=== PATIENT | male | born 1950 | race Caucasian/White ===

== ENCOUNTER → 2016-12-15 | Outpatient (CLI) | payer MEDICARE, OTHER ==
[~2016-12-15] MED LIST: ATEN-60 PO; HYDR25TA4 PO
== END | disposition home or self-care (01) ==
LOC: LAB 11:00
PROVIDERS: ATTEND Physician Assistant
DX: L57.9 Skin changes due to chronic exposure to nonionizing radiation, unspecified (principal)

== ENCOUNTER → 2017-04-17 | Outpatient (CLI) | payer MEDICARE, OTHER ==
[2017-04-17 13:23] LABS: Basophils # (auto) 0 uL; Basophils % (auto) 0.3 % (0.0-2.0); CONDITION Y; Eosinophils # (auto) 0.1 uL; Eosinophils % (auto) 0.9 % (0.0-7.0); Hematocrit 50.4 % (41.0-53.0); Hemoglobin 16.6 g/dL (13.5-17.5); Lymphocytes # (auto) 1.9 uL; Mean Corpuscular Hemoglobin 29.6 pg (28.0-32.0); Mean Corpuscular Hgb Conc. 32.9 g/dL (32.0-36.0); Mean Corpuscular Volume 89.9 fL (80.0-100.0); Mean Platelet Volume 8.4 fL (7.4-10.4); Monocytes # (auto) 0.9 uL; Monocytes % (auto) 9.4 % (0.0-12.0); Neutrophils # (auto) 7.1 uL; Neutrophils % (auto) 70.4 % (37.0-80.0); Platelet Count (auto) 252 10^3/uL (140-450); Red Cell Distribution Width 14.8 % (11.6-16.0); White Blood Cell 10.1 10^3/uL (4.4-10.8)
[2017-04-17 13:51] LABS: Albumin 3.7 g/dL (3.4-5.0); BUN/Creatinine Ratio 13.8; Bilirubin, Total 0.6 mg/dL (0.2-1.0); Calcium 9.4 mg/dL (8.5-10.1); Potassium 3.8 mmol/L (3.5-5.1); Total Protein 7.6 g/dL (6.4-8.2)
[2017-04-17 14:16] LABS: Urine Bilirubin Negative (Negative); Urine Blood Negative /uL (Negative); Urine Color Yellow (Yellow); Urine Glucose Normal (Normal); Urine Hyaline Cast FEW /lpf (0 - 2); Urine Ketone Negative (Negative); Urine Mucus FEW (None Seen); Urine Nitrite Negative (Negative); Urine RBC <1 /hpf (0 - 3); Urine pH 5.5 (5.0-8.0)
== END | disposition home or self-care (01) ==
LOC: LAB 13:06
PROVIDERS: ATTEND Family Medicine
DX: I10 Essential (primary) hypertension (principal); R73.09 Other abnormal glucose; R97.20 Elevated prostate specific antigen [PSA]
CPT/HCPCS: 36415; 80053; 80061; 81001; 82607; 83036; 84153; 84443; 85025

== ENCOUNTER → 2017-06-15 | Day surgery (SDC) | payer MEDICARE, OTHER ==
[2017-06-11 10:52] LABS: Basophils # (auto) 0 uL; Basophils % (auto) 0.4 % (0.0-2.0); Eosinophils # (auto) 0.2 uL; Eosinophils % (auto) 2.2 % (0.0-7.0); Hematocrit 48.8 % (41.0-53.0); Hemoglobin 16.3 g/dL (13.5-17.5); Lymphocytes # (auto) 1.6 uL; Mean Corpuscular Hemoglobin 30.5 pg (28.0-32.0); Mean Corpuscular Hgb Conc. 33.4 g/dL (32.0-36.0); Mean Corpuscular Volume 91.6 fL (80.0-100.0); Mean Platelet Volume 8.7 fL (6.9-10.8); Monocytes # (auto) 0.7 uL; Monocytes % (auto) 9.4 % (0.0-12.0); Platelet Count (auto) 205 10^3/uL (140-450); Red Cell Distribution Width 15.2 % (11.8-14.3); White Blood Cell 7.4 10^3/uL (4.4-10.8)
[2017-06-11 11:04] LABS: INR 0.93 (0.9-1.15); Partial Thromboplastin Time 26.9 sec (22.64-33.71); Prothrombin Time 10.1 sec (9.37-12.3)
[~2017-06-15] VITALS: Ht 170.2 cm; Wt 93.0 kg
[~2017-06-15] MED LIST changes: +FLUMAZENIL 0.1 MG/ML INJ 10ML MDV IV ONE; +MIDAZOLAM HCL 5 MG/ML-1ML VIAL ONE; +NALOXONE HCL 0.4 MG/ML VIAL ONE; +SODIUM CHLORIDE LOCK 10 ML ONE; +diphenhdrAMINE HCL 50 MG/1 ML VL ONE; +fentaNYL CITRATE 100 MCG/2 ML VL ONE
[2017-06-15 09:50] VITALS: BP 126/84
== END | disposition home or self-care (01) ==
LOC: GI 07:55
PROVIDERS: ATTEND Internal Medicine Gastroenterology
DX: Z12.11 Encounter for screening for malignant neoplasm of colon (principal); K57.30 Diverticulosis of large intestine without perforation or abscess without bleeding; K63.5 Polyp of colon; E66.9 Obesity, unspecified; F17.210 Nicotine dependence, cigarettes, uncomplicated; D69.6 Thrombocytopenia, unspecified
CPT/HCPCS: 36415; 45380; 85025; 85610; 85730; 88305; J1200; J2250; J3010; J7030; 99152

== ENCOUNTER → 2017-10-29 | Outpatient (CLI) | payer MEDICARE, OTHER ==
[~2017-10-29] MED LIST changes: -FLUMAZENIL 0.1 MG/ML INJ 10ML MDV IV ONE; -MIDAZOLAM HCL 5 MG/ML-1ML VIAL ONE; -NALOXONE HCL 0.4 MG/ML VIAL ONE; -SODIUM CHLORIDE LOCK 10 ML ONE; -diphenhdrAMINE HCL 50 MG/1 ML VL ONE; -fentaNYL CITRATE 100 MCG/2 ML VL ONE
[2017-10-29 13:45] LABS: Albumin 3.6 g/dL (3.4-5.0); BUN/Creatinine Ratio 15.5; Bilirubin, Total 0.3 mg/dL (0.2-1.0); Calcium 9.4 mg/dL (8.5-10.1); Potassium 4.3 mmol/L (3.5-5.1); Total Protein 7.6 g/dL (6.4-8.2)
== END | disposition home or self-care (01) ==
LOC: LAB 12:11
PROVIDERS: ATTEND Family Medicine
DX: I10 Essential (primary) hypertension (principal); E11.9 Type 2 diabetes mellitus without complications
CPT/HCPCS: 36415; 80053; 80061; 82043; 83036

== ENCOUNTER → 2019-02-07 | Outpatient (CLI) | payer MEDICARE, OTHER ==
[2019-02-07 10:51] LABS: Urine Bacteria NONE SEEN /hpf (None Seen); Urine Blood Negative /uL (Negative); Urine Hyaline Cast FEW /lpf (0 - 2); Urine Specific Gravity 1.021 (1.001-1.035); Urine WBC 1 /hpf (0 - 3)
[2019-02-07 11:09] LABS: Potassium 4.5 mmol/L (3.5-5.1)
[2019-02-07 11:10] LABS: Basophils # (auto) 0 uL; Basophils % (auto) 0.3 % (0.0-2.0); Eosinophils # (auto) 0.1 uL; Eosinophils % (auto) 1.2 % (0.0-7.0); Hematocrit 49.1 % (41.0-53.0); Hemoglobin 16.1 g/dL (13.5-17.5); Lymphocytes # (auto) 1.7 uL; Lymphocytes % (auto) 21.6 % (10.0-50.0); Mean Corpuscular Hemoglobin 29.2 pg (28.0-32.0); Mean Corpuscular Hgb Conc. 32.7 g/dL (32.0-36.0); Mean Corpuscular Volume 89.1 fL (80.0-100.0); Monocytes # (auto) 0.7 uL; Monocytes % (auto) 9.5 % (0.0-12.0); Neutrophils # (auto) 5.2 uL; Neutrophils % (auto) 67.4 % (37.0-80.0); Nucleated Red Blood Cells % 0.1 %; Platelet Count (auto) 201 10^3/uL (140-450); Red Blood Cells 5.51 10^6/uL (4.5-5.90); White Blood Cell 7.7 10^3/uL (4.4-10.8)
[2019-02-07 11:19] LABS: Albumin 3.7 g/dL (3.4-5.0); BUN/Creatinine Ratio 21.8; Bilirubin, Total 0.3 mg/dL (0.2-1.0); Calcium 9.6 mg/dL (8.5-10.1); Total Protein 7.6 g/dL (6.4-8.2)
[2019-02-07 11:32] LABS: Prostate Specific Antigen 0.19 ng/mL (0.0-4.0)
== END | disposition home or self-care (01) ==
LOC: LAB 09:56
PROVIDERS: ATTEND Family Medicine
DX: Z12.5 Encounter for screening for malignant neoplasm of prostate (principal); I10 Essential (primary) hypertension; E11.9 Type 2 diabetes mellitus without complications; E66.01 Morbid (severe) obesity due to excess calories; Z72.0 Tobacco use
CPT/HCPCS: 36415; 80053; 80061; 81001; 82043; 82607; 83036; 84153; 84443; 85025

== ENCOUNTER → 2020-03-07 | Outpatient (CLI) | payer MEDICARE, OTHER ==
[2020-03-07 11:43] LABS: Urine Bacteria NONE SEEN /hpf (None Seen); Urine Blood Negative /uL (Negative); Urine Specific Gravity 1.031 (1.001-1.035); Urine WBC <1 /hpf (0 - 3)
[2020-03-07 11:45] LABS: Basophils # (auto) 0 10 ^3/uL (0-0.2); Basophils % (auto) 0.3 % (0.0-2.0); Eosinophils # (auto) 0 10 ^3/uL (0-0.8); Eosinophils % (auto) 0.5 % (0.0-7.0); Hematocrit 49.7 % (41.0-53.0); Hemoglobin 16.1 g/dL (13.5-17.5); Lymphocytes # (auto) 1.4 10 ^3/uL (0.4-5.4); Lymphocytes % (auto) 17.3 % (10.0-50.0); Mean Corpuscular Hemoglobin 29.2 pg (28.0-32.0); Mean Corpuscular Hgb Conc. 32.4 g/dL (32.0-36.0); Mean Corpuscular Volume 90.1 fL (80.0-100.0); Monocytes # (auto) 0.7 10 ^3/uL (0-1.3); Monocytes % (auto) 9.3 % (0.0-12.0); Neutrophils # (auto) 5.7 10 ^3/uL (1.6-8.6); Neutrophils % (auto) 72.6 % (37.0-80.0); Platelet Count (auto) 197 10^3/uL (140-450); Red Blood Cells 5.51 10^6/uL (4.5-5.90); Red Cell Distribution Width 14.1 % (11.8-14.3); White Blood Cell 7.9 10^3/uL (4.4-10.8)
[2020-03-07 12:11] LABS: Albumin 3.4 g/dL (3.4-5.0); Potassium 4.1 mmol/L (3.5-5.1)
[2020-03-07 12:16] LABS: BUN/Creatinine Ratio 18.9; Bilirubin, Total 0.5 mg/dL (0.2-1.0); Total Protein 7.4 g/dL (6.4-8.2)
== END | disposition home or self-care (01) ==
LOC: LAB 11:21
PROVIDERS: ATTEND Family Medicine
DX: I10 Essential (primary) hypertension (principal); E11.9 Type 2 diabetes mellitus without complications; E66.01 Morbid (severe) obesity due to excess calories; Z72.0 Tobacco use
CPT/HCPCS: 36415; 80053; 80061; 81001; 82043; 83036; 85025

== ENCOUNTER → 2020-08-29 | Outpatient (CLI) | payer MEDICARE, OTHER ==
[2020-08-29 10:06] LABS: Basophils # (auto) 0 10 ^3/uL (0-0.2); Basophils % (auto) 0.3 % (0.0-2.0); Eosinophils # (auto) 0.1 10 ^3/uL (0-0.8); Hematocrit 46.9 % (41.0-53.0); Hemoglobin 15.7 g/dL (13.5-17.5); Lymphocytes # (auto) 1.5 10 ^3/uL (0.4-5.4); Lymphocytes % (auto) 21.3 % (10.0-50.0); Mean Corpuscular Hemoglobin 29.6 pg (28.0-32.0); Mean Corpuscular Hgb Conc. 33.5 g/dL (32.0-36.0); Mean Corpuscular Volume 88.2 fL (80.0-100.0); Monocytes # (auto) 0.7 10 ^3/uL (0-1.3); Monocytes % (auto) 10.6 % (0.0-12.0); Neutrophils # (auto) 4.7 10 ^3/uL (1.6-8.6); Neutrophils % (auto) 66.8 % (37.0-80.0); Nucleated Red Blood Cells % 0.1 %; Platelet Count (auto) 209 10^3/uL (140-450); Red Blood Cells 5.31 10^6/uL (4.5-5.90); Red Cell Distribution Width 14.8 % (11.8-14.3); White Blood Cell 7.1 10^3/uL (4.4-10.8)
[2020-08-29 11:15] LABS: Potassium 4.2 mmol/L (3.5-5.1)
[2020-08-29 11:37] LABS: Albumin 3.6 g/dL (3.4-5.0); BUN/Creatinine Ratio 18.2; Bilirubin, Total 0.4 mg/dL (0.2-1.0); Calcium 9.3 mg/dL (8.5-10.1); Total Protein 7.9 g/dL (6.4-8.2)
== END | disposition home or self-care (01) ==
LOC: LAB 09:45
PROVIDERS: ATTEND Family Medicine
DX: I10 Essential (primary) hypertension (principal); E11.65 Type 2 diabetes mellitus with hyperglycemia; E66.09 Other obesity due to excess calories; E78.41 Elevated Lipoprotein(a)
CPT/HCPCS: 36415; 80053; 80061; 82607; 83036; 85025

== ENCOUNTER → 2021-09-24 | Outpatient (CLI) | payer MEDICARE, OTHER ==
[2021-09-24 11:06] LABS: Urine Bacteria NONE SEEN /hpf (None Seen); Urine Blood Negative /uL (Negative); Urine Specific Gravity 1.006 (1.001-1.035); Urine WBC <1 /hpf (0 - 3)
[2021-09-24 11:10] LABS: Basophils # (auto) 0 10 ^3/uL (0-0.2); Basophils % (auto) 0.5 % (0.0-2.0); Eosinophils # (auto) 0.1 10 ^3/uL (0-0.8); Eosinophils % (auto) 1.5 % (0.0-7.0); Hematocrit 46.6 % (41.0-53.0); Hemoglobin 15.3 g/dL (13.5-17.5); Lymphocytes # (auto) 1.5 10 ^3/uL (0.4-5.4); Lymphocytes % (auto) 18.6 % (10.0-50.0); Mean Corpuscular Hemoglobin 29.3 pg (28.0-32.0); Mean Corpuscular Hgb Conc. 32.8 g/dL (32.0-36.0); Mean Corpuscular Volume 89.4 fL (80.0-100.0); Monocytes # (auto) 0.7 10 ^3/uL (0-1.3); Neutrophils # (auto) 5.5 10 ^3/uL (1.6-8.6); Neutrophils % (auto) 70.4 % (37.0-80.0); Nucleated Red Blood Cells % 0.2 %; Red Blood Cells 5.21 10^6/uL (4.5-5.90); Red Cell Distribution Width 14.8 % (11.8-14.3); White Blood Cell 7.9 10^3/uL (4.4-10.8)
[2021-09-24 11:50] LABS: Potassium 4.3 mmol/L (3.5-5.1)
[2021-09-24 12:13] LABS: Albumin 3.6 g/dL (3.4-5.0); BUN/Creatinine Ratio 17.1; Bilirubin, Total 0.4 mg/dL (0.2-1.0); Calcium 9.6 mg/dL (8.5-10.1); Total Protein 7.7 g/dL (6.4-8.2)
== END | disposition home or self-care (01) ==
LOC: LAB 10:41
PROVIDERS: ATTEND Family Medicine
DX: E11.9 Type 2 diabetes mellitus without complications (principal); F17.200 Nicotine dependence, unspecified, uncomplicated; I10 Essential (primary) hypertension; E66.09 Other obesity due to excess calories
CPT/HCPCS: 36415; 80053; 80061; 81001; 82043; 82607; 83036; 85025

== ENCOUNTER → 2022-03-18 | Outpatient (CLI) | payer MEDICARE, OTHER | END | disposition home or self-care (01) | LOC: LAB 09:18 | PROVIDERS: ATTEND Urology | DX: Z01.812 Encounter for preprocedural laboratory examination (principal) | CPT/HCPCS: 36415; 82565; 84520 ==

== ENCOUNTER → 2022-04-23 | Outpatient (CLI) | payer MEDICARE, OTHER ==
[2022-04-23 11:52] LABS: Urine Bacteria NONE SEEN /hpf (None Seen); Urine Blood 3+ /uL (Negative); Urine Specific Gravity 1.016 (1.001-1.035); Urine WBC 1 /hpf (0 - 3)
== END | disposition home or self-care (01) ==
LOC: LAB 10:56
PROVIDERS: ATTEND Urology
DX: N13.30 Unspecified hydronephrosis (principal); N40.0 Benign prostatic hyperplasia without lower urinary tract symptoms; N39.0 Urinary tract infection, site not specified
CPT/HCPCS: 81001; 84153; 87086

== ENCOUNTER → 2022-09-25 | Outpatient (CLI) | payer MEDICARE, OTHER ==
[2022-09-25 10:33] LABS: Basophils # (auto) 0 10 ^3/uL (0-0.2); Basophils % (auto) 0.4 % (0.0-2.0); Eosinophils # (auto) 0.1 10 ^3/uL (0-0.8); Eosinophils % (auto) 1.6 % (0.0-7.0); Hematocrit 45.7 % (41.0-53.0); Hemoglobin 14.9 g/dL (13.5-17.5); Lymphocytes # (auto) 1.3 10 ^3/uL (0.4-5.4); Lymphocytes % (auto) 16.1 % (10.0-50.0); Mean Corpuscular Hgb Conc. 32.7 g/dL (32.0-36.0); Mean Corpuscular Volume 88.6 fL (80.0-100.0); Monocytes # (auto) 0.8 10 ^3/uL (0-1.3); Monocytes % (auto) 9.6 % (0.0-12.0); Neutrophils # (auto) 5.8 10 ^3/uL (1.6-8.6); Neutrophils % (auto) 72.3 % (37.0-80.0); Red Blood Cells 5.15 10^6/uL (4.5-5.90); Red Cell Distribution Width 15.7 % (11.8-14.3)
[2022-09-25 10:55] LABS: Potassium 4.5 mmol/L (3.5-5.1)
[2022-09-25 11:06] LABS: Albumin 3.6 g/dL (3.4-5.0); BUN/Creatinine Ratio 11.3; Bilirubin, Total 0.4 mg/dL (0.2-1.0); Calcium 9.2 mg/dL (8.5-10.1); Total Protein 7.6 g/dL (6.4-8.2)
== END | disposition home or self-care (01) ==
LOC: LAB 10:10
PROVIDERS: ATTEND Student in an Organized Health Care Education/Training Program
DX: E11.9 Type 2 diabetes mellitus without complications (principal); I10 Essential (primary) hypertension
CPT/HCPCS: 36415; 80053; 80061; 82043; 82274; 83036; 85025

== ENCOUNTER 2023-01-21 10:33 | Emergency (ER) | payer MEDICARE, OTHER ==
[~2023-01-21] VITALS: Ht 170.2 cm; Wt 90.3 kg
[2023-01-21 10:59] LABS: Basophils # (auto) 0 10 ^3/uL (0-0.2); Basophils % (auto) 0.3 % (0.0-2.0); Eosinophils # (auto) 0.1 10 ^3/uL (0-0.8); Eosinophils % (auto) 1.2 % (0.0-7.0); Hematocrit 46.3 % (41.0-53.0); Lymphocytes # (auto) 1.5 10 ^3/uL (0.4-5.4); Mean Corpuscular Hemoglobin 28.7 pg (28.0-32.0); Mean Corpuscular Hgb Conc. 32.3 g/dL (32.0-36.0); Mean Corpuscular Volume 88.8 fL (80.0-100.0); Monocytes # (auto) 0.7 10 ^3/uL (0-1.3); Monocytes % (auto) 9.1 % (0.0-12.0); Neutrophils # (auto) 5.7 10 ^3/uL (1.6-8.6); Neutrophils % (auto) 70.4 % (37.0-80.0); Nucleated Red Blood Cells % 0.1 %; Red Blood Cells 5.21 10^6/uL (4.5-5.90); Red Cell Distribution Width 15.2 % (11.8-14.3); White Blood Cell 8.1 10^3/uL (4.4-10.8)
[2023-01-21 11:25] LABS: Calcium 8.7 mg/dL (8.5-10.1); Potassium 4.4 mmol/L (3.5-5.1)
[2023-01-21 11:31] LABS: BUN/Creatinine Ratio 18.5 (10.0-20.0); Bilirubin, Total 0.3 mg/dL (0.2-1.0); Total Protein 7.2 g/dL (6.4-8.2)
[2023-01-21 11:56] VITALS: BP 154/70
[2023-01-21] MEDS ORDERED: LIDOCAINE 1% HCL (LOCAL ANESTH.) INJ 20ML MDV ID ONE (12:00)
[2023-01-21] MEDS ORDERED: CEPHALEXIN 250 MG CAP PO ONE (12:45)
[2023-01-21] MEDS ORDERED: CEPH-510 PO (12:45)
[2023-01-21] MEDS ORDERED: MUPI2OIN2 EX ×3 (12:45→13:42)
[2023-01-21] MEDS ORDERED: HYDROcodone-ACET 5/325MG TAB PO ONE (12:45)
== END 2023-01-21 13:43 | disposition home or self-care (01) ==
LOC: ER 10:33
DX: S61.012A Laceration without foreign body of left thumb without damage to nail, initial encounter (principal); E11.65 Type 2 diabetes mellitus with hyperglycemia; W26.8XXA Contact with other sharp object(s), not elsewhere classified, initial encounter; Y93.89 Activity, other specified; Y92.89 Other specified places as the place of occurrence of the external cause; Y99.8 Other external cause status
CPT/HCPCS: 12002; 36415; 80053; 82962; 84484; 85025; 99283; J2001

== ENCOUNTER → 2023-09-15 | Outpatient (CLI) | payer MEDICARE, OTHER ==
[~2023-09-15] MED LIST changes: +CEPH-510 PO; +MUPI2OIN2 EX
[2023-09-15 12:02] LABS: Basophils # (auto) 0.1 10 ^3/uL (0-0.2); Basophils % (auto) 0.8 % (0.0-2.0); Eosinophils # (auto) 0.1 10 ^3/uL (0-0.8); Eosinophils % (auto) 1.1 % (0.0-7.0); Hemoglobin 15.1 g/dL (13.5-17.5); Lymphocytes # (auto) 1.2 10 ^3/uL (0.4-5.4); Mean Corpuscular Hemoglobin 28.8 pg (28.0-32.0); Mean Corpuscular Hgb Conc. 32.1 g/dL (32.0-36.0); Mean Corpuscular Volume 89.6 fL (80.0-100.0); Monocytes # (auto) 0.7 10 ^3/uL (0-1.3); Monocytes % (auto) 8.1 % (0.0-12.0); Neutrophils # (auto) 6.2 10 ^3/uL (1.6-8.6); Nucleated Red Blood Cells % 0.1 %; Red Blood Cells 5.25 10^6/uL (4.5-5.90); White Blood Cell 8.2 10^3/uL (4.4-10.8)
[2023-09-15 12:45] LABS: Alanine Aminotransferase 24 U/L (7-40); Alkaline Phosphatase 69 U/L (46-116); Anion Gap 6 (5-15); BUN/Creatinine Ratio 10.6 (10.0-20.0); Blood Urea Nitrogen 12 mg/dL (9-23); Calcium 9.9 mg/dL (8.5-10.1); Carbon Dioxide 25 mmol/L (20-30); Chloride 106 mmol/L (98-107); Creatinine, Urine 102.81 mg/dL (30.0-125.0); Glucose 135 mg/dL (74-106); LDL Cholesterol 45 mg/dL (< 100); Potassium 4.6 mmol/L (3.5-5.1); Sodium 137 mmol/L (136-145); Triglycerides 94 mg/dL (< 150)
[2023-09-15 12:46] LABS: Albumin 4.7 g/dL (3.2-4.8); Aspartate Aminotransferase 27 U/L (13-40)
[2023-09-15 12:47] LABS: Bilirubin, Total 0.3 mg/dL (0.2-1.0); Cholesterol 113 mg/dL (< 200); HDL Cholesterol 50 mg/dL (40-59); Total Protein 7.3 g/dL (5.7-8.2)
== END | disposition home or self-care (01) ==
LOC: LAB 11:45
PROVIDERS: ATTEND Student in an Organized Health Care Education/Training Program
DX: E11.69 Type 2 diabetes mellitus with other specified complication (principal); I10 Essential (primary) hypertension; E11.29 Type 2 diabetes mellitus with other diabetic kidney complication; N40.1 Benign prostatic hyperplasia with lower urinary tract symptoms
CPT/HCPCS: 36415; 80053; 80061; 82043; 82274; 82570; 83036; 84153; 85025

== ENCOUNTER 2024-06-10 12:40 | Inpatient (IN) | payer MEDICARE, OTHER ==
[~2024-06-10] VITALS: Ht 170.2 cm; Wt 86.0 kg
[2024-06-10] MEDS: IPRATROPIUM BROM 0.5 MG/2.5ML INH SOL NEB ONE ×2 (13:34→17:01)
[2024-06-10] MEDS: ALBUTEROL SULF 2.5 MG/0.5ML(0.5%) NEB SOLN NEB ONE ×2 (13:34→17:01)
[2024-06-10 13:40] VITALS: O2SAT 90
[2024-06-10] MEDS: methylPREDNISolone SOD SUCC 125 MG/2 ML VL IV ONE (13:49)
[2024-06-10 14:00] LABS: Basophils # (auto) 0 10 ^3/uL (0-0.2); Basophils % (auto) 0.1 % (0.0-2.0); Eosinophils # (auto) 0 10 ^3/uL (0-0.8); Eosinophils % (auto) 0.1 % (0.0-7.0); Hematocrit 41.8 % (41.0-53.0); Hemoglobin 13.7 g/dL (13.5-17.5); Lymphocytes # (auto) 0.8 10 ^3/uL (0.4-5.4); Lymphocytes % (auto) 4.6 % (10.0-50.0); Mean Corpuscular Hemoglobin 29.1 pg (28.0-32.0); Mean Corpuscular Hgb Conc. 32.8 g/dL (32.0-36.0); Mean Corpuscular Volume 88.8 fL (80.0-100.0); Monocytes # (auto) 1.7 10 ^3/uL (0-1.3); Neutrophils # (auto) 14.2 10 ^3/uL (1.6-8.6); Neutrophils % (auto) 85.2 % (37.0-80.0); Nucleated Red Blood Cells % 0.1 %; Platelet Count (auto) 288 10^3/uL (140-450); Red Blood Cells 4.71 10^6/uL (4.5-5.90); Red Cell Distribution Width 15.1 % (11.8-14.3); White Blood Cell 16.7 10^3/uL (4.4-10.8)
[2024-06-10 14:17] LABS: Alanine Aminotransferase 51 U/L (7-40); Albumin 4.5 g/dL (3.2-4.8); Alkaline Phosphatase 76 U/L (46-116); Anion Gap 6 (5-15); Aspartate Aminotransferase 49 U/L (13-40); BUN/Creatinine Ratio 14.4 (10.0-20.0); Bilirubin, Total 0.4 mg/dL (0.2-1.0); Blood Urea Nitrogen 14 mg/dL (9-23); Calcium 9.8 mg/dL (8.7-10.4); Carbon Dioxide 30 mmol/L (20-31); Chloride 102 mmol/L (98-107); Glucose 137 mg/dL (74-106); Potassium 3.6 mmol/L (3.5-5.1); Sodium 138 mmol/L (136-145); Total Protein 7.4 g/dL (5.7-8.2)
[2024-06-10 15:20] VITALS: TEMP 99.8
[2024-06-10 15:46] LABS: COVID19 ANTIGEN SOFIA FIA NEGATIVE (NEGATIVE)
[2024-06-10 15:47] LABS: Rapid Influenza A Negative (Negative); Rapid Influenza B Negative (Negative)
[2024-06-10] MEDS: cefTRIAXone 1GM/50ML D5W 50 ML IV ONE (16:45)
[2024-06-10] MEDS: AZITHROMYCIN 500MG/ 250ML 250 ML IV ONE (17:12)
[2024-06-10] MEDS ORDERED: ALBUTEROL SULF 2.5 MG/0.5ML(0.5%) NEB SOLN NEB SCH (17:30)
[2024-06-10] MEDS ORDERED: ACETAMINOPHEN 325 MG TAB PO PRN (17:30)
[2024-06-10] MEDS ORDERED: IPRATROPIUM BROM 0.5 MG/2.5ML INH SOL NEB SCH (17:30)
[2024-06-10] MEDS ORDERED: HYDROcodone-ACET 5/325MG TAB PO PRN (17:30)
[2024-06-10] MEDS ORDERED: ONDANSETRON HCL 4 MG/2 ML VIAL IV PRN (17:30)
[2024-06-10] MEDS ORDERED: HYDROmorphone HCL 2 MG/ML VL/or syr IV PRN (17:30)
[2024-06-10] MEDS: methylPREDNISolone SOD SUCC 125 MG/2 ML VL IV SCH (17:34)
[2024-06-10 19:30] VITALS: PULSE 106; RESP 18; O2SAT 92
[2024-06-10 19:32] VITALS: BP 107/58; PULSE 106; RESP 18; O2SAT 92
[2024-06-10] MEDS ORDERED: DOXY-346 PO (20:33)
[2024-06-10] MEDS ORDERED: ALBU108A5 IN (20:33)
[2024-06-10] MEDS ORDERED: PRED20TA2 PO (20:33)
[2024-06-10] MEDS ORDERED: SODIUM CHLOR 0.9% PF (SALINE LOCK) 10ML VIAL/SYR IV SCH (22:00)
[2024-06-11] MEDS ORDERED: cefTRIAXone 1GM/50ML D5W 50 ML IV SCH (09:00)
[2024-06-11] MEDS ORDERED: ENOXAPARIN SOD 40 MG/0.4 ML SYRINGE SC SCH (10:00)
[2024-06-11] MEDS ORDERED: hydroCHLOROthiazide 25 MG TAB PO SCH (10:00)
[2024-06-11] MEDS ORDERED: ATENOLOL 25 MG TAB PO SCH (10:00)
[2024-06-11] MEDS ORDERED: AZITHROMYCIN 500MG/ 250ML 250 ML IV SCH (10:00)
== END 2024-06-10 20:36 | disposition left against medical advice (07) | DRG 193 ==
LOC: ER 12:40 → OVERFLOW 17:22
PROVIDERS: ADMIT Internal Medicine; ATTEND Internal Medicine
DX: J18.9 Pneumonia, unspecified organism (principal); J96.01 Acute respiratory failure with hypoxia; J44.0 Chronic obstructive pulmonary disease with (acute) lower respiratory infection; J44.1 Chronic obstructive pulmonary disease with (acute) exacerbation; Z53.29 Procedure and treatment not carried out because of patient's decision for other reasons; I10 Essential (primary) hypertension; E11.9 Type 2 diabetes mellitus without complications; N40.0 Benign prostatic hyperplasia without lower urinary tract symptoms; E78.5 Hyperlipidemia, unspecified; Z20.822 Contact with and (suspected) exposure to COVID-19; Z85.828 Personal history of other malignant neoplasm of skin
CPT/HCPCS: 36415; 71045; 80053; 83605; 83880; 84484; 85025; 87426; 87804; 93005; 94640; 99291; G0378

== ENCOUNTER → 2024-09-13 | Outpatient (CLI) | payer MEDICARE, OTHER ==
[~2024-09-13] MED LIST changes: +ALBU108A5 IN; +DOXY-346 PO; +EMPA1TAB PO; +LEVO750T40 PO; +METF-490 PO; +PRED20TA2 PO
[2024-09-13 11:30] LABS: Urine Bacteria None Seen /hpf (None Seen)
[2024-09-13 11:43] LABS: Basophils # (auto) 0 10 ^3/uL (0-0.2); Basophils % (auto) 0.3 % (0.0-2.0); Eosinophils # (auto) 0 10 ^3/uL (0-0.8); Eosinophils % (auto) 0.5 % (0.0-7.0); Hematocrit 45.9 % (41.0-53.0); Hemoglobin 15.1 g/dL (13.5-17.5); Lymphocytes # (auto) 1.4 10 ^3/uL (0.4-5.4); Lymphocytes % (auto) 15.2 % (10.0-50.0); Mean Corpuscular Hemoglobin 29.8 pg (28.0-32.0); Mean Corpuscular Volume 90.3 fL (80.0-100.0); Monocytes # (auto) 0.7 10 ^3/uL (0-1.3); Monocytes % (auto) 7.7 % (0.0-12.0); Neutrophils # (auto) 7.1 10 ^3/uL (1.6-8.6); Neutrophils % (auto) 76.3 % (37.0-80.0); Nucleated Red Blood Cells % 0.1 %; Platelet Count (auto) 223 10^3/uL (140-450); Red Blood Cells 5.08 10^6/uL (4.5-5.90); White Blood Cell 9.4 10^3/uL (4.4-10.8)
[2024-09-13 12:05] LABS: Urine Blood 2+ /uL (Negative); Urine Clarity Clear (Clear); Urine Color Light-Yellow (Yellow); Urine Protein, UAD TRACE (Negative); Urine Specific Gravity 1.017 (1.001-1.035); Urine Squamous Epithelial Cell None Seen /hpf (<5); Urine Urobilinogen Normal (Negative); Urine WBC 2 /HPF (0-3); Urine pH 5.5 (5.0-9.0)
[2024-09-13 12:08] LABS: Alanine Aminotransferase 24 U/L (7-40); Alkaline Phosphatase 85 U/L (46-116); Anion Gap 8 (5-15); Aspartate Aminotransferase 15 U/L (13-40); BUN/Creatinine Ratio 14.9 (10.0-20.0); Blood Urea Nitrogen 17 mg/dL (9-23); Carbon Dioxide 29 mmol/L (20-31); Chloride 103 mmol/L (98-107); LDL Cholesterol 53 mg/dL (< 100); Potassium 4.4 mmol/L (3.5-5.1); Sodium 140 mmol/L (136-145); Triglycerides 76 mg/dL (< 150)
[2024-09-13 12:09] LABS: Albumin 5.1 g/dL (3.2-4.8); Bilirubin, Total 0.3 mg/dL (0.2-1.0); Calcium 10.5 mg/dL (8.7-10.4); Cholesterol 122 mg/dL (< 200); Glucose 294 mg/dL (74-106); HDL Cholesterol 53 mg/dL (40-59); Total Protein 7.3 g/dL (5.7-8.2)
== END | disposition home or self-care (01) ==
LOC: LAB 11:16
PROVIDERS: ATTEND Nurse Practitioner
DX: I10 Essential (primary) hypertension (principal); E11.9 Type 2 diabetes mellitus without complications; E03.9 Hypothyroidism, unspecified; E78.5 Hyperlipidemia, unspecified; N40.1 Benign prostatic hyperplasia with lower urinary tract symptoms; Z79.899 Other long term (current) drug therapy
CPT/HCPCS: 36415; 80053; 80061; 81001; 83036; 84153; 84443; 85025

== ENCOUNTER 2024-09-27 12:11 | Inpatient (IN) | payer MEDICARE, OTHER ==
[~2024-09-27] VITALS: Ht 170.2 cm; Wt 84.0 kg
[~2024-09-27 12:11] MED LIST changes: -EMPA1TAB PO; -LEVO750T40 PO; -METF-490 PO
--- NOTE | 2024-09-27 12:49 | DVH ---
CHEST RADIOGRAPH Indication: SOB Technique: Single frontal view of the chest was obtained Comparison: XY CHEST PORTABLE on DOS: 06/10/24 FINDINGS: Lines and Tubes: None Lungs: left basilar opacity. Pleura: Small left pleural effusion No pneumothorax. Cardiomediastinal contours: Unremarkable Bones: No acute osseous abnormality. IMPRESSION: Small left pleural effusion and left basilar opacit.y
[2024-09-27 13:17] LABS: Basophils # (auto) 0 10 ^3/uL (0-0.2); Basophils % (auto) 0.1 % (0.0-2.0); Eosinophils # (auto) 0 10 ^3/uL (0-0.8); Hematocrit 41.1 % (41.0-53.0); Hemoglobin 13.4 g/dL (13.5-17.5); Lymphocytes # (auto) 0.7 10 ^3/uL (0.4-5.4); Lymphocytes % (auto) 4.7 % (10.0-50.0); Mean Corpuscular Hemoglobin 28.8 pg (28.0-32.0); Mean Corpuscular Hgb Conc. 32.5 g/dL (32.0-36.0); Mean Corpuscular Volume 88.7 fL (80.0-100.0); Monocytes # (auto) 1.4 10 ^3/uL (0-1.3); Monocytes % (auto) 10.2 % (0.0-12.0); Neutrophils # (auto) 11.7 10 ^3/uL (1.6-8.6); Platelet Count (auto) 279 10^3/uL (140-450); Red Blood Cells 4.64 10^6/uL (4.5-5.90); Red Cell Distribution Width 14.8 % (11.8-14.3); White Blood Cell 13.8 10^3/uL (4.4-10.8)
[2024-09-27 13:23] LABS: Anion Gap 7 (5-15); Carbon Dioxide 29 mmol/L (20-31); Potassium 4.4 mmol/L (3.5-5.1)
[2024-09-27 13:29] LABS: Blood Urea Nitrogen 10 mg/dL (9-23)
[2024-09-27] MEDS: ACETAMINOPHEN 325 MG TAB PO ONE (13:42)
[2024-09-27 13:54] LABS: Chloride 97 mmol/L (98-107); Sodium 133 mmol/L (136-145)
[2024-09-27 13:56] LABS: Glucose 502 mg/dL (74-106)
--- NOTE | 2024-09-27 14:20 | ED.PDOC ---
History of Present Illness HPI Comments 74-year-old male presents with 1 week of worsening fever chills cough congestion and runny nose and shortness of breath. Patient reports he has had these symptoms once before and found out he had a pneumonia. Chief Complaint: Shortness of Breath Time Seen by MD: 12:26 Primary Care Provider: UNKNOWN Allergies: Coded Allergies: NO KNOWN ALLERGIES (Unverified , 06/11/17) Home Meds Active Scripts Prednisone (Prednisone) 20 Mg Tab, 60 MG PO DAILY for 4 Days, #12 MG Prov:NIGEL BISHOP MD 06/10/24 Albuterol Sulfate (Albuterol Sulfate Hfa) 108 Mcg/Act Aer, 2 PUFF IN Q6HP PRN, #1 AER prn difficulty breathing Prov:NIGEL BISHOP MD 06/10/24 Doxycycline (Monohydrate) (Doxycycline) 100 Mg Tab, 100 MG PO BID for 10 Days, #20 TAB Prov:NIGEL BISHOP MD 06/10/24 Mupirocin (Pseudomonas Fluores (Mupirocin) 2 % Oin, 1 APPLIC EX BID, #15 MG Apply to the affected area Prov:ABHIJEET FLORES Q STITCHING MACHINE SETTER 01/21/23 Cephalexin ( Keflex 500) 500 Mg Cap, 1 CAP PO QID for 10 Days, #38 CAP Prov:ABHIJEET FLORES Q STITCHING MACHINE SETTER 01/21/23 Reported Medications Hydrochlorothiazide (Hydrochlorothiazide) 25 Mg Tab, 25 MG PO DAILY 11/15/12 Atenolol (Atenolol) 25 Mg Tab, 25 MG PO DAILY 11/15/12 Information Source: Patient Mode of Arrival: Ambulatory Past Medical History PAST MEDICAL HISTORY: Cancer, COPD, DM, High Lipids, HTN Surgical History: Denies all surgeries Family History Family History: Unknown Social History Smoker: Unknown Alcohol: Denies ETOH Use Drugs: Denies Drug Use Lives In: Home All Other Systems: Reviewed and Negative Physical Exam General Appearance: Mild Distress HEENT: Pharynx Normal Neck: Normal Inspection Respiratory: Crackles Cardiovascular: Tachycardia Breast Exam: Deferred Gastrointestinal: Non Tender Genitalia: Deferred Pelvic: Deferred Rectal: Deferred Extremities: Normal range of motion Neurologic: No Motor Deficits Cerebellar Function: NOT DONE Reflexes: NOT DONE Skin: Dry, Normal Color, Warm Lymphatic: NOT DONE Was a procedure done? Was a procedure done?: No Differential Dx Considerations may include: Viral syndrome, pneumonia, CHF, ACS, COPD X-Ray, Labs, Meds, VS Vital Signs Date Time Temp Pulse Resp B/P (MAP) Pulse Ox O2 Delivery O2 Flow Rate FiO2 09/27/24 13:42 100.5 09/27/24 12:31 24 91 Nasal Cannula* 3 32 09/27/24 12:18 100.5 130 24 142/75 (97) 74 Lab Test 09/27/24 14:08 09/27/24 13:01 Range/Units Troponin I High Sensitivity Pending 16 </=54 ng/L White Blood Count 13.8 H 4.4-10.8 10^3/uL Red Blood Count 4.64 4.5-5.90 10^6/uL Hemoglobin 13.4 L 13.5-17.5 g/dL Hematocrit 41.1 41.0-53.0 % Mean Corpuscular Volume 88.7 80.0-100.0 fL Mean Corpuscular Hemoglobin 28.8 28.0-32.0 pg Mean Corpuscular Hemoglobin Concent 32.5 32.0-36.0 g/dL Red Cell Distribution Width 14.8 H 11.8-14.3 % Platelet Count 279 140-450 10^3/uL Mean Platelet Volume 8.5 6.9-10.8 fL Neutrophils (%) (Auto) 85.0 H 37.0-80.0 % Lymphocytes (%) (Auto) 4.7 L 10.0-50.0 % Monocytes (%) (Auto) 10.2 0.0-12.0 % Eosinophils (%) (Auto) 0.0 0.0-7.0 % Basophils (%) (Auto) 0.1 0.0-2.0 % Neutrophils # (Auto) 11.7 H 1.6-8.6 10 ^3/uL Lymphocytes # (Auto) 0.7 0.4-5.4 10 ^3/uL Monocytes # (Auto) 1.4 H 0-1.3 10 ^3/uL Eosinophils # (Auto) 0 0-0.8 10 ^3/uL Basophils # (Auto) 0 0-0.2 10 ^3/uL Nucleated Red Blood Cells 0.0 % Sodium Level 133 L 136-145 mmol/L Potassium Level 4.4 3.5-5.1 mmol/L Chloride Level 97 L 98-107 mmol/L Carbon Dioxide Level 29 20-31 mmol/L Anion Gap 7 5-15 Blood Urea Nitrogen 10 9-23 mg/dL Creatinine 1.00 0.700-1.30 mg/dL Glomerular Filtration Rate Calc 78 >90 mL/min BUN/Creatinine Ratio 10.0 10.0-20.0 Serum Glucose 502 *H 74-106 mg/dL Calcium Level 9.0 8.7-10.4 mg/dL B-Type Natriuretic Peptide 42.67 0-100 pg/mL Current Medications Medications (Trade) Dose Ordered Sig/Nicole Route Start Time Stop Time Status Last Admin Acetaminophen (Tylenol Tablet) 650 mg ONCE ONCE PO 09/27/24 12:45 09/27/24 12:46 DC 09/27/24 13:42 Time of 1ST Reevaluation: 14:19 Reevaluation 1ST: Unchanged Patient Education/Counseling: Diagnosis, Treatment Family Education/Counseling: No Family Present Departure 1 Departure Time of Disposition: 14:19 (Patient presented with acute shortness of breath concerning for acute on chronic COPD Exacerbation, Pneumonia, ACS, CHF, Pneumothorax. Less likely PE, Dissection. Patient does not appear septic at this time.Data: 1. I ordered and reviewed the result of at least 3 labs including a CBC, BMP, and Troponin. 2. I independently interpreted the following tests: Chest X-ray shows a pneumonia.Risk:This patient has a high risk of morbidity due to further diagnostic testing or treatment and may suffer from respiratory or cardiac etiology . Workup reveals a pneumonia, patient will be started on antibiotics, admitted for further workup and possible expert consultation.Patient has concerns for sepsis however the patient has some volume overload so we will not give the patient the full 30 cc per kg bolus) Impression: Primary Impression: Pneumonia Qualified Codes: J18.9 - Pneumonia, unspecified organism Additional Impression: Shortness of breath Disposition: ADMITTED INPATIENT Admit to: Med Surg Condition: Serious Critical Care Note Critical Care Time?: Yes Critical care comment: Acute shortness of breath Authorized and Performed by: Delonte Payan MD Total critical care time: Approximately 38 minutes Due to a high probability of clinically significant, life threatening deterioration, the patient required my highest level of preparedness to intervene emergently and I personally spent this critical care time directly and personally managing the patient. This critical care time included obtaining a history; examining the patient; pulse oximetry; ordering and review of studies; arranging urgent treatment with development of a management plan; evaluation of patient's response to treatment; frequent reassessment; and, discussions with other providers. This critical care time was performed to assess and manage the high probability of imminent, life-threatening deterioration that could result in multi-organ failure. It was exclusive of separately billable procedures and treating other patients and teaching time. Please see my other sections and the rest of the note for further information on patient assessment and treatment. Stability Stability form required: No Heart Score Heart Score: Heart Score Response (Comments) Value History Slightly Suspicious 0 EKG Repolarization Disturb 1 Age >65 2 Risk Factors >3 or Hx ASHD 2 Troponin 1-2 x's Normal limit 1 Total 6 DELONTE PAYAN MD Sep 27, 2024 14:20
[2024-09-27] MEDS: AZITHROMYCIN 250 MG TAB PO ONE (14:34)
[2024-09-27] MEDS: CEFEPIME 2GM/50ML NS 50 ML IV ONE (14:34)
[2024-09-27] MEDS: VANCOMYCIN 1GM/250ML KIT 200 ML IV ONE (14:34)
[2024-09-27] MEDS: SODIUM CHLORIDE 0.9% 1,000 ML IV ONE (14:35)
[2024-09-27] MEDS: InsuLIN REG 1unit/0.01ml Soln (100units/ml) IV ONE (14:53)
[2024-09-27 18:51] VITALS: PULSE 103; RESP 20; O2SAT 92
[2024-09-27] MEDS: IPRATROPIUM BROM 0.5 MG/2.5ML INH SOL NEB ONE (19:14)
[2024-09-27] MEDS: ALBUTEROL SULF 2.5 MG/0.5ML(0.5%) NEB SOLN NEB ONE (19:14)
[2024-09-27] MEDS ORDERED: DEXTROSE (50%) 50ML SYRG IV PRN (19:15)
[2024-09-27] MEDS ORDERED: ONDANSETRON HCL 4 MG/2 ML VIAL IV PRN (19:15)
[2024-09-27] MEDS ORDERED: ACETAMINOPHEN 325 MG TAB PO PRN (19:15)
--- NOTE | 2024-09-27 19:42 | ECG ---
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
[2024-09-27] MEDS: InsuLIN REG 1unit/0.01ml Soln (100units/ml) SC SCH (20:03)
[2024-09-27] MEDS: ATENOLOL 25 MG TAB PO ONE (20:03)
[2024-09-27] MEDS: ACCU-CHEK COMFORT CURVE STRIP VI SCH (20:03)
[2024-09-27 20:27] VITALS: BP 129/59; PULSE 89; RESP 20; O2SAT 93
[2024-09-27 20:56] VITALS: BP 141/64; PULSE 83; RESP 19; TEMP 98.1; O2SAT 94; O2SAT 95
[2024-09-27 21:00] VITALS: BP 141/64; PULSE 83; RESP 19; TEMP 98.1; O2SAT 94
[2024-09-27] MEDS: ATORVASTATIN 20 MG TAB PO SCH (21:57)
[2024-09-28] VITALS (11 sets, daily range): BP systolic 110–136; BP diastolic 49–66; PULSE 73–89; RESP 18–20; TEMP 98.1–99.2; O2SAT 92–94
--- NOTE | 2024-09-28 03:52 | DVHHP2 ---
History of Present Illness Reason for Visit: Shortness for breath History of Present Illness 74-year-old male presents for evaluation of shortness for breath. Patient reports a five day history of flu-like symptoms including fever, congestion, runny nose and worsening shortness for breath. He also reports having a productive cough with yellowish phlegm. Denies chest pain or palpitations. Other acute reported. Past Medical History Diabetes mellitus, dyslipidemia, hypertension, COPD and cancer Past Surgical History Denies Family History Noncontributory Smoke: No ALCOHOL: none Drugs: None Lives: with Family Review of Systems Review of Systems Review of systems are currently negative otherwise addressed in HPI. Allergies: Coded Allergies: NO KNOWN ALLERGIES (Unverified , 06/11/17) Medications Current Medications Medications Dose Ordered Sig/Nicole Route Start Time Stop Time Status Last Admin Dose Admin Ceftriaxone Sodium 50 ml @ 100 mls/hr DAILY@09 IV 09/28/24 09:00 Azithromycin 250 ml @ 125 mls/hr DAILY IV 09/28/24 10:00 Albuterol 2.5 mg Q6HPRN PRN NEB 09/27/24 19:15 Amlodipine Besylate 10 mg DAILY PO 09/28/24 10:00 Atenolol 25 mg DAILY PO 09/28/24 10:00 Atorvastatin Calcium 20 mg HS PO 09/27/24 22:00 09/27/24 21:57 20 MG Diagnostic Test (Pha) 1 strip IQ4HR 09/27/24 20:00 09/28/24 00:21 1 STRIP Insulin Human Regular IQ4HR SC 09/27/24 20:00 09/28/24 00:21 9 UNITS Dextrose 50 ml UD PRN IV 09/27/24 19:15 Ondansetron HCl 4 mg Q4HP PRN IV 09/27/24 19:15 Enoxaparin Sodium 40 mg DAILY SC 09/28/24 10:00 Acetaminophen 650 mg Q6HP PRN PO 09/27/24 19:15 Exam Vital Signs Vital Signs Date Time Temp Pulse Resp B/P (MAP) Pulse Ox O2 Delivery O2 Flow Rate FiO2 09/28/24 01:00 99.2 79 19 124/52 (76) 92 99.2 09/27/24 20:56 Nasal Cannula* 3 32 Exam Gen: 74-year-old male in mild distress Skin: Warm, dry, normal color and texture, no rash. HEENT: Normocephalic atraumatic, mucous membranes moist and pink. Neck: Cervical and supraclavicular nodes normal without enlargement, trachea is midline, thyroid gland is normal without masses. Pulmonary: Diminished breath sounds bilaterally Cardiac: Regular rate and rhythm. No murmur Abdomen: Soft, nontender, nondistended, bowel sounds present all 4 quadrants, no guarding, no rigidity, no organomegaly. Extremities: No cyanosis, clubbing, no edema Neuro: Cranial nerves II through XII grossly intact, normal affect and speech, no focal motor deficits. Labs/Xrays ORDERING PHYSICIAN: DELONTE CORONA MD PROCEDURE(s): CXRP - CHEST PORTABLE REASON: SOB ORDER NUMBER(s): [id number], ACCESSION NUMBER(s): [id number] CHEST RADIOGRAPH Indication: SOB Technique: Single frontal view of the chest was obtained Comparison: XY CHEST PORTABLE on DOS: 06/10/24 FINDINGS: Lines and Tubes: None Lungs: left basilar opacity. Pleura: Small left pleural effusion No pneumothorax. Cardiomediastinal contours: Unremarkable Bones: No acute osseous abnormality. IMPRESSION: Small left pleural effusion and left basilar opacit.y Labs Test 09/28/24 00:08 09/27/24 14:08 09/27/24 13:01 Range/Units POC Glucose 270 H 70-106 mg/dl Troponin I High Sensitivity 17 </=54 ng/L White Blood Count 13.8 H 4.4-10.8 10^3/uL Red Blood Count 4.64 4.5-5.90 10^6/uL Hemoglobin 13.4 L 13.5-17.5 g/dL Hematocrit 41.1 41.0-53.0 % Mean Corpuscular Volume 88.7 80.0-100.0 fL Mean Corpuscular Hemoglobin 28.8 28.0-32.0 pg Mean Corpuscular Hemoglobin Concent 32.5 32.0-36.0 g/dL Red Cell Distribution Width 14.8 H 11.8-14.3 % Platelet Count 279 140-450 10^3/uL Mean Platelet Volume 8.5 6.9-10.8 fL Neutrophils (%) (Auto) 85.0 H 37.0-80.0 % Lymphocytes (%) (Auto) 4.7 L 10.0-50.0 % Monocytes (%) (Auto) 10.2 0.0-12.0 % Eosinophils (%) (Auto) 0.0 0.0-7.0 % Basophils (%) (Auto) 0.1 0.0-2.0 % Neutrophils # (Auto) 11.7 H 1.6-8.6 10 ^3/uL Lymphocytes # (Auto) 0.7 0.4-5.4 10 ^3/uL Monocytes # (Auto) 1.4 H 0-1.3 10 ^3/uL Eosinophils # (Auto) 0 0-0.8 10 ^3/uL Basophils # (Auto) 0 0-0.2 10 ^3/uL Nucleated Red Blood Cells 0.0 % Sodium Level 133 L 136-145 mmol/L Potassium Level 4.4 3.5-5.1 mmol/L Chloride Level 97 L 98-107 mmol/L Carbon Dioxide Level 29 20-31 mmol/L Anion Gap 7 5-15 Blood Urea Nitrogen 10 9-23 mg/dL Creatinine 1.00 0.700-1.30 mg/dL Glomerular Filtration Rate Calc 78 >90 mL/min BUN/Creatinine Ratio 10.0 10.0-20.0 Serum Glucose 502 *H 74-106 mg/dL Lactic Acid Level 1.8 0.4-2.0 mmol/L Calcium Level 9.0 8.7-10.4 mg/dL B-Type Natriuretic Peptide 42.67 0-100 pg/mL Assessment/Plan Assessment/Plan Assessment Community-acquired pneumonia Uncontrolled diabetes mellitus Hypertension COPD Admit the patient to Med surge to the hospitalist Rocephin/azithromycin Med nebs Resume home medications Continue treatment per orders. Plan discussed with: Patient My Orders Orders - MUMTAZ GOULD AGACNP Procedure Category Date Status Time Ceftriaxone 1gm/50ml PHA /01/15 In Process D5w (Rocephin) 09:00 Azithromycin 500mg/ PHA 2/01/15 In Process 250ml (Zithromax 50 10:00 Albuterol Medneb PHA 09/27/24 In Process (Ventolin Medneb) 19:15 Amlodipine Tablet PHA 09/28/24 In Process (Norvasc Tablet) 10:00 Atenolol Tablet PHA 09/28/24 In Process (Tenormin Tablet) 10:00 Atorvastatin (Lipitor) PHA 09/27/24 In Process 22:00 Glucose Blood PHA 09/27/24 In Process (Accu-Chek Comfort 20:00 Insulin R (Human) PHA 09/27/24 In Process (Insulin R) 20:00 Dextrose 50% Syringe PHA 09/27/24 In Process 19:15 Admit ADMIT 09/27/24 Transmitted 19:06 Ondansetron Hcl PHA 09/27/24 In Process (Zofran) 19:15 Enoxaparin Sodium PHA 09/28/24 In Process (Lovenox) 10:00 Complete Blood Count LAB 09/28/24 Logged 04:00 Cardiac DIET 09/28/24 Transmitted Diet-2gna,Lofat,Lochol Breakfast Condition: Stable JAMES 09/27/24 In Process 19:06 Acetaminophen Tablet PHA 09/27/24 In Process (Tylenol Tablet) 19:15 Bedrest With Bathroom JAMES 09/27/24 In Process Privileg 19:06 Basic Metabolic Panel LAB 09/28/24 Logged 04:00 Date of Service: Sep 27, 2024 Billing Provider: MUMTAZ GOULD Common Visit Codes: [id number] INP/OBS CARE (HIGH) MUMTAZ GOULD Sep 28, 2024 03:52
[2024-09-28] MEDS: ALBUTEROL SULF 2.5 MG/0.5ML(0.5%) NEB SOLN NEB PRN (04:52)
--- NOTE | 2024-09-28 06:42 | ECG ---
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
[2024-09-28 07:04] LABS: Chloride 103 mmol/L (98-107); Potassium 4.2 mmol/L (3.5-5.1); Sodium 137 mmol/L (136-145)
[2024-09-28 07:05] LABS: Anion Gap 9 (5-15); Carbon Dioxide 25 mmol/L (20-31)
[2024-09-28 07:06] LABS: Basophils # (auto) 0 10 ^3/uL (0-0.2); Basophils % (auto) 0.3 % (0.0-2.0); Calcium 9.5 mg/dL (8.7-10.4); Eosinophils # (auto) 0 10 ^3/uL (0-0.8); Eosinophils % (auto) 0.5 % (0.0-7.0); Hematocrit 38.3 % (41.0-53.0); Hemoglobin 12.5 g/dL (13.5-17.5); Lymphocytes # (auto) 1.2 10 ^3/uL (0.4-5.4); Lymphocytes % (auto) 12.2 % (10.0-50.0); Mean Corpuscular Hemoglobin 28.9 pg (28.0-32.0); Mean Corpuscular Hgb Conc. 32.7 g/dL (32.0-36.0); Mean Corpuscular Volume 88.5 fL (80.0-100.0); Monocytes # (auto) 1.3 10 ^3/uL (0-1.3); Monocytes % (auto) 13.3 % (0.0-12.0); Neutrophils # (auto) 7.2 10 ^3/uL (1.6-8.6); Neutrophils % (auto) 73.7 % (37.0-80.0); Platelet Count (auto) 275 10^3/uL (140-450); Red Blood Cells 4.33 10^6/uL (4.5-5.90); Red Cell Distribution Width 14.6 % (11.8-14.3); White Blood Cell 9.8 10^3/uL (4.4-10.8)
[2024-09-28 07:11] LABS: BUN/Creatinine Ratio 8.4 (10.0-20.0)
[2024-09-28 07:14] LABS: Blood Urea Nitrogen 7 mg/dL (9-23); Glucose 186 mg/dL (74-106)
[2024-09-28] MEDS: amLODIPine BESYLATE 5 MG TAB PO SCH (08:43)
[2024-09-28] MEDS: cefTRIAXone 1GM/50ML D5W 50 ML IV SCH (08:44)
[2024-09-28] MEDS: ATENOLOL 25 MG TAB PO SCH (09:30)
[2024-09-28] MEDS: ENOXAPARIN SOD 40 MG/0.4 ML SYRINGE SC SCH (09:30)
[2024-09-28] MEDS: AZITHROMYCIN 500MG/ 250ML 250 ML IV SCH (11:50)
[2024-09-28] MEDS: InsuLIN REG 1unit/0.01ml Soln (100units/ml) SC SCH (12:13)
--- NOTE | 2024-09-28 15:53 | DVHPNRES ---
Progress Note Date Seen: Sep 28, 2024 Resident Creating Document: RUSSELL GUERRERO RESIDENT Medical Necessity Reason Pt with a Central, PICC or Fol: No Subjective Review of Systems This is a 74-year-old male with past medical history of type 2 diabetes mellitus, dyslipidemia, hypertension, COPD, skin cancer presented to the ED for an evaluation of shortness of breath. Patient reports that he has a 5 day history of flu-like symptoms including fever, chills, congestion ,runny nose, shortness of breath, productive cough with yellowish sputum getting worse that prompted this visit. Patient was seen and examined on the bedside. He is alert, oriented x3. Mentioned improvement of shortness of breath and cough. No other active complaints Constitutional: No: Fever, Chills, Sweats, Weakness, Malaise, Other Eyes: No: Pain, Vision change, Conjunctivae inflammation, Eyelid inflammation, Other, Redness ENT: No: Ear pain, Ear discharge, Nose pain, Nose discharge, Nose congestion, Mouth pain, Mouth swelling, Throat pain, Throat swelling, Other Respiratory: Shortness of breath, improving, Cough, No Dry,Wheezing, Hemoptysis, Pleuritic Pain, Sputum, Wheezing, Other Cardiovascular: No: Chest Pain, Palpitations, Orthopnea, Paroxysmal Noc. Dyspnea, Edema, Lt Headedness, Other Gastrointestinal: No: Nausea, Vomiting, Abdominal Pain, Diarrhea, Constipation, Melena, Hematochezia, Other Musculoskeletal: No: other, neck pain, shoulder pain, arm pain, back pain, hand pain, leg pain, foot pain Neurological:; No: Weakness, Numbness, Incoordination, Change in speech, Confusion, Seizures Objective vital signs Vital Sign Date Time Temp Pulse Resp B/P (MAP) Pulse Ox O2 Delivery O2 Flow Rate FiO2 09/28/24 13:00 98.2 74 18 126/66 (86) 92 98.2 09/28/24 10:00 Nasal Cannula 2.0 09/28/24 10:00 28 Total Intake and Output 09/27/24 09/27/24 09/28/24 14:59 22:59 06:59 Intake Total 1225.0 ml 700 ml Balance 1225.0 ml 700 ml medications Current Medications Medications Dose Ordered Sig/Nicole Route Start Time Stop Time Status Last Admin Dose Admin Ceftriaxone Sodium 50 ml @ 100 mls/hr DAILY@09 IV 09/28/24 09:00 09/28/24 08:44 100 MLS/HR Azithromycin 250 ml @ 125 mls/hr DAILY IV 09/28/24 10:00 09/28/24 11:50 125 MLS/HR Albuterol 2.5 mg Q6HPRN PRN NEB 09/27/24 19:15 09/28/24 04:52 2.5 MG Amlodipine Besylate 10 mg DAILY PO 09/28/24 10:00 09/28/24 08:43 10 MG Atenolol 25 mg DAILY PO 09/28/24 10:00 09/28/24 09:30 25 MG Atorvastatin Calcium 20 mg HS PO 09/27/24 22:00 09/27/24 21:57 20 MG Diagnostic Test (Pha) 1 strip IQ4HR 09/27/24 20:00 09/28/24 12:11 1 STRIP Dextrose 50 ml UD PRN IV 09/27/24 19:15 Ondansetron HCl 4 mg Q4HP PRN IV 09/27/24 19:15 Enoxaparin Sodium 40 mg DAILY SC 09/28/24 10:00 09/28/24 09:30 40 MG Acetaminophen 650 mg Q6HP PRN PO 09/27/24 19:15 Insulin Glargine 15 units QPM SC 09/28/24 18:00 Insulin Human Regular ACHS SC 09/28/24 11:30 09/28/24 12:13 4 UNITS Examination Physical examination: General Appearance: Alert, Oriented X3, Cooperative, No acute distress HEENT: Atraumatic, PERRLA, EOMI, Mucous membrane moist/pink Respiratory: Vesicular breath sound on the right side and basal rales on the left side. Cardiovascular: Regular rate, Normal S1, Normal S2, No murmurs, no chest wall tenderness Abdominal: Normal bowel sounds, Soft, No tenderness, No hepatospenomegaly, No masses Extremities: No clubbing, No cyanosis, No edema, Normal pulses, No tenderness/swelling Skin: Multiple skin pigmentation in the face and upper part of the body, No breakdown, No significant lesion Neuro: Normal gait, Normal speech, Strength at 5/5 X4 ext, Normal tone, Sensation intact, grossly intact cranial nerves. Psych/Mental Status: Mental status NL, Mood NL laboratory and microbiology Laboratory Tests 09/28/24 06:12 Test 09/28/24 06:12 Range/Units Serum Glucose 186 #H 74-106 mg/dL Microbiology Date/Time Source Procedure Growth Status 09/27/24 14:30 Blood Blood Culture - Preliminary NO GROWTH AFTER 24 HOURS OF INCUBATION. Resulted Labs and/or images reviewed: Labs reviewed by me, Image(s) reviewed by me Problem List/Assessment/Plan Problem List/Assessment/Plan Assessment and plan: # Acute hypoxic respiratory failure likely due to community-acquired Gram- positive / Gram-negative pneumonia # Possible Gram-positive/Gram-negative pneumonia - CXR showed small left pleural effusion and left basilar opacity. - Medneb with albuterol and ipratropium q.6 p.r.n. - IV ceftriaxone 1 g daily and IV azithromycin 500 mg daily - Blood culture preliminary report revealed no growth in 24 hours of incubation - Ordered COVID, flu, MRSA and sputum C/S - Incentive spirometry. # Type 2 diabetes mellitus, HbA1C 11.0% ( 09/17) - Lantus 15 unit at q.p.m. and mild sliding scale of insulin # Hypertensive heart disease - Continue atenolol 25 mg daily and amlodipine 10 mg daily - Continue aspirin 81 mg daily and atorvastatin 20 mg at HS # PUD prophylaxis - Pepcid 20 mg po daily. # DVT prophylaxis - Lovenox 40 mg sc daily. Goal of care discussed with the patient for more than 17 minutes full code Plan discussed with Dr. Bowden Plan discussed with: Patient, Other My Orders My Orders Orders - RUSSELL GUERRERO RESIDENT Procedure Category Date Status Time Covid19 Antigen Jenna LAB 09/28/24 Logged Rapid Influenza A&B LAB 09/28/24 Logged 08:09 Mrsa Screen FLO 09/28/24 Uncollected 08:09 Respiratory Culture FLO 09/28/24 Uncollected W/ Gs 08:09 Incentive Spirometry ORDERS 09/28/24 Transmitted 08:09 Urinalysis LAB 09/28/24 Uncollected 08:11 Communication Order ORDERS 09/28/24 Transmitted 08:11 Insulin Lantus PHA 09/28/24 In Process (Glargine) (Lantus) 18:00 Insulin R (Human) PHA 09/28/24 In Process (Insulin R) 11:30 Date of Service: Sep 28, 2024 Billing Provider: LUCIAN TRAN MD Common Visit Codes: [id number] INP/OBS CARE(HIGH) RUSSELL GUERRERO RESIDENT Sep 28, 2024 15:53 LUCIAN TRAN MD Oct 04, 2024 09:41
--- NOTE | 2024-09-28 16:08 | DVHSR ---
APPROVED REPORT EXAM: Two-dimensional and M-mode echocardiogram with Doppler and color Doppler. Blood Pressure: 114/49 mmHg INDICATION shortness of breath RISK FACTORS Obesity: Height: 5'7, Weight: 185 DIMENSIONS LVDd5.0 (3.8-5.7cm)LA (2D)3.3 (1.9-4.0cm)Aortic Root3.7 (2.0-3.7cm) LVDs4.4 (2.5-4.0cm)LA (MM) (1.9-4.0cm)Aortic Cusp Exc0.7 (1.5-2.0cm) EF (%) 50.0 (55-70%)Rt. Atrium3.8 (1.9-4.0cm)Asc. Aorta cm IVSd0.8 (0.7-1.1cm)RV (D)4.9 (1.8-2.4cm) PWd1.0 (0.7-1.1cm) Mitral Valve MitralMitral Stenosis E wave0.98m/sMV Mean GR.mmHg A wave0.83m/sMV Peak GR.50mmHg E/A ratio1.22D MVAcm2 DECEL [id number] 1/2 Timems Aortic Valve Aortic ValveAortic Stenosis V10.74m/Nelia Mean GR.8mmHg V21.84m/Nelia Peak GR.14mmHg LVOT Diameter2.5 (1.8-2.4cm)Doppler AVA1.97cm2 Other Information Quality : Technically LimitedRhythm : Technically limited study due to body habitus.patient position. Conclusion Sinus rhythm. Concentric LVH. Aortic root enlargement. Dilation of the sinuses of Valsalva. RV enlargement. Aortic sclerosis with diminished excursion of the leaflets and calcification of the aortic leaflets. The mitral structurally normal. The tricuspid and pulmonic is normal. Left ventricular function is mildly diminished. EF is about 40% with global hypokinesis. Diminished RV function. Doppler reveals a peak gradient across the aortic valve of14 mmHg with a mean gradient of nine. Aort ic valve area of 1.9 cm2. No pericardial effusion masses or vegetations.
[2024-09-28] MEDS: ACCU-CHEK COMFORT CURVE STRIP VI SCH (16:41)
[2024-09-28] MEDS: INSULIN LANTUS (GLARGINE) 1 /0.01ml (100units/ml) SC SCH (18:25)
[2024-09-28 20:33] LABS: Urine Bacteria None Seen /hpf (None Seen)
[2024-09-28 20:57] LABS: Urine Blood 3+ /uL (Negative); Urine Clarity Clear (Clear); Urine Color Yellow (Yellow); Urine Mucus FEW (None Seen); Urine Protein, UAD 1+ (Negative); Urine Specific Gravity 1.026 (1.001-1.035); Urine Squamous Epithelial Cell None Seen /hpf (<5); Urine Urobilinogen 3 mg/dL (Negative); Urine WBC 4 /HPF (0-3)
[2024-09-28 22:26] LABS: COVID19 ANTIGEN SOFIA FIA NEGATIVE (NEGATIVE); Rapid Influenza A Negative (Negative); Rapid Influenza B Negative (Negative)
[2024-09-29 05:00] VITALS: BP 124/68; PULSE 77; RESP 18; TEMP 97.9; O2SAT 95
[2024-09-29 07:15] LABS: Basophils # (auto) 0 10 ^3/uL (0-0.2); Basophils % (auto) 0.3 % (0.0-2.0); Eosinophils # (auto) 0.1 10 ^3/uL (0-0.8); Eosinophils % (auto) 0.7 % (0.0-7.0); Hematocrit 40.5 % (41.0-53.0); Hemoglobin 13.2 g/dL (13.5-17.5); Lymphocytes # (auto) 1.2 10 ^3/uL (0.4-5.4); Lymphocytes % (auto) 14.2 % (10.0-50.0); Mean Corpuscular Hgb Conc. 32.6 g/dL (32.0-36.0); Mean Corpuscular Volume 88.7 fL (80.0-100.0); Monocytes # (auto) 1.1 10 ^3/uL (0-1.3); Monocytes % (auto) 12.6 % (0.0-12.0); Neutrophils % (auto) 72.2 % (37.0-80.0); Nucleated Red Blood Cells % 0.1 %; Platelet Count (auto) 331 10^3/uL (140-450); Red Blood Cells 4.57 10^6/uL (4.5-5.90); Red Cell Distribution Width 14.6 % (11.8-14.3); White Blood Cell 8.3 10^3/uL (4.4-10.8)
[2024-09-29 07:37] LABS: Alkaline Phosphatase 66 U/L (46-116); Anion Gap 7 (5-15); BUN/Creatinine Ratio 12.5 (10.0-20.0); Blood Urea Nitrogen 11 mg/dL (9-23); Calcium 10.2 mg/dL (8.7-10.4); Chloride 98 mmol/L (98-107); Potassium 4.8 mmol/L (3.5-5.1); Sodium 138 mmol/L (136-145)
[2024-09-29 07:38] LABS: Aspartate Aminotransferase 26 U/L (13-40)
[2024-09-29 07:39] LABS: Albumin 4.3 g/dL (3.2-4.8)
[2024-09-29 07:40] LABS: Bilirubin, Total 0.3 mg/dL (0.2-1.0); Total Protein 6.6 g/dL (5.7-8.2)
[2024-09-29 07:41] LABS: Alanine Aminotransferase 43 U/L (7-40); Carbon Dioxide 33 mmol/L (20-31); Glucose 161 mg/dL (74-106)
[2024-09-29 08:35] VITALS: BP 113/62; PULSE 72; RESP 18; TEMP 97.9; O2SAT 96
[2024-09-29] MEDS: FAMOTIDINE 20 MG TAB PO SCH (08:45)
[2024-09-29 09:35] VITALS: O2SAT 92
[2024-09-29 10:00] VITALS: O2SAT 94; O2SAT 96
[2024-09-29] MEDS ORDERED: EMPA1TAB PO (11:43)
[2024-09-29] MEDS ORDERED: LEVO750T40 PO (11:43)
[2024-09-29] MEDS ORDERED: METF-490 PO (11:43)
[2024-09-29] MEDS ORDERED: ALBU108A5 IN (11:43)
--- NOTE | 2024-09-29 12:21 | DVHDSRES ---
Discharge Summary Date of Admission Resident Creating Document: RUSSELL GUERRERO RESIDENT Sep 27, 2024 at 19:06 Date of Discharge: Sep 29, 2024 Admitting Diagnosis Acute hypoxic respiratory failure likely due to community-acquired Gram-positive / Gram-negative pneumonia Wounds: No wound was present. Labs/Diagnostic Data: Laboratory Results Test 09/29/24 11:02 09/29/24 05:57 09/28/24 20:50 09/28/24 10:45 POC Glucose 250 mg/dl (70-106) White Blood Count 8.3 10^3/uL (4.4-10.8) Red Blood Count 4.57 10^6/uL (4.5-5.90) Hemoglobin 13.2 g/dL (13.5-17.5) Hematocrit 40.5 % (41.0-53.0) Mean Corpuscular Volume 88.7 fL (80.0-100.0) Mean Corpuscular Hemoglobin 29.0 pg (28.0-32.0) Mean Corpuscular Hemoglobin Concent 32.6 g/dL (32.0-36.0) Red Cell Distribution Width 14.6 % (11.8-14.3) Platelet Count 331 10^3/uL (140-450) Mean Platelet Volume 8.4 fL (6.9-10.8) Neutrophils (%) (Auto) 72.2 % (37.0-80.0) Lymphocytes (%) (Auto) 14.2 % (10.0-50.0) Monocytes (%) (Auto) 12.6 % (0.0-12.0) Eosinophils (%) (Auto) 0.7 % (0.0-7.0) Basophils (%) (Auto) 0.3 % (0.0-2.0) Neutrophils # (Auto) 6.0 10 ^3/uL (1.6-8.6) Lymphocytes # (Auto) 1.2 10 ^3/uL (0.4-5.4) Monocytes # (Auto) 1.1 10 ^3/uL (0-1.3) Eosinophils # (Auto) 0.1 10 ^3/uL (0-0.8) Basophils # (Auto) 0 10 ^3/uL (0-0.2) Nucleated Red Blood Cells 0.1 % Sodium Level 138 mmol/L (136-145) Potassium Level 4.8 mmol/L (3.5-5.1) Chloride Level 98 mmol/L (98-107) Carbon Dioxide Level 33 mmol/L (20-31) Anion Gap 7 (5-15) Blood Urea Nitrogen 11 mg/dL (9-23) Creatinine 0.88 mg/dL (0.700-1.30) Glomerular Filtration Rate Calc 90 mL/min (>90) BUN/Creatinine Ratio 12.5 (10.0-20.0) Serum Glucose 161 mg/dL (74-106) Calcium Level 10.2 mg/dL (8.7-10.4) Total Bilirubin 0.3 mg/dL (0.2-1.0) Aspartate Amino Transferase (AST) 26 U/L (13-40) Alanine Aminotransferase (ALT) 43 U/L (7-40) Alkaline Phosphatase 66 U/L (46-116) Total Protein 6.6 g/dL (5.7-8.2) Albumin 4.3 g/dL (3.2-4.8) Influenza Type A Antigen Negative (Negative) Influenza Type B Antigen Negative (Negative) SARS-CoV-2 Antigen (Rapid) Negative (NEGATIVE) Urine Color Yellow (Yellow) Urine Clarity Clear (Clear) Urine pH 6.0 (5.0-9.0) Urine Specific Munger 1.026 (1.001-1.035) Urine Protein 1+ (Negative) Urine Ketones Negative (Negative) Urine Blood 3+ /uL (Negative) Urine Nitrite Negative (Negative) Urine Bilirubin Negative (Negative) Urine Urobilinogen 3 mg/dL (Negative) Urine Leukocyte Esterase Negative /uL (Negative) Urine RBC 168 /hpf (0 - 3) Urine Microscopic WBC 4 /HPF (0-3) Urine Squamous Epithelial Cells None seen /hpf (<5) Urine Calcium Oxalate Crystals Few (None Seen) Urine Bacteria None seen /hpf (None Seen) Urine Mucus Few (None Seen) Urine Glucose 4+ mg/dL (Normal) Test 09/28/24 06:12 09/27/24 14:08 09/27/24 13:01 Thyroid Stimulating Hormone (TSH) 0.76 uIU/mL (0.55-4.78) Troponin I High Sensitivity 17 ng/L (</=54) Lactic Acid Level 1.8 mmol/L (0.4-2.0) B-Type Natriuretic Peptide 42.67 pg/mL (0-100) Other Laboratory Tests 09/29/24 05:57 Brief Hx & Hospital Course: This is a 74-year-old male with past medical history of type 2 diabetes mellitus, dyslipidemia, hypertension, COPD, skin cancer presented to the ED for an evaluation of shortness of breath. Patient reports that he has a 5 day history of flu-like symptoms including fever, chills, congestion ,runny nose, shortness of breath, productive cough with yellowish sputum getting worse that prompted this visit. Hospital course: Acute hypoxic respiratory failure likely due to community- acquired Gram-positive / Gram-negative pneumonia and initially patient required 3 L oxygen which was titrated down to room air. CXR showed small left pleural effusion and left basilar opacity. the patient was treated with breathing treatment with albuterol and ipratropium q.6 p.r.n., IV ceftriaxone 1 g daily, IV azithromycin 500 mg daily for possible community-acquired pneumonia and COVID and flu were negative. blood sugar was controlled with Lantus 15 units q.p.m. and moderate sliding scale of insulin. echo on 09/28/2024 revealed ejection fraction about 40% with global hypokinesis. Patient has no ongoing cardiac symptoms that required inpatient cardiac workup and spoke with Cardiology recommended outpatient workup to rule out ischemic cause of cardiomyopathy. Discharge plan was discussed with the patient. Patient is being discharged to home. Discharge diagnosis: # Acute hypoxic respiratory failure likely due to community-acquired Gram-positive / Gram-negative pneumonia # Possible Gram-positive/Gram-negative pneumonia # Chronic COPD # Newly diagnosed chronic systolic heart failure # Type 2 diabetes mellitus, HbA1C 11.0% ( 09/17) # Hypertensive heart disease Discharge plan: Disposition: Home Medications: Metformin 500 mg b.i.d., Jardiance 10 mg daily and levofloxacin 750 mg daily for 5 days Follow up: PCP in 1 week Outpatient Cardiology in 1-2 weeks for workup to rule out ischemic cardiomyopathy Consults/Reason for consult No consultation was done. Operations or Procedures CHEST RADIOGRAPH Indication: SOB Technique: Single frontal view of the chest was obtained Comparison: XY CHEST PORTABLE on DOS: 06/10/24 FINDINGS: Lines and Tubes: None Lungs: left basilar opacity. Pleura: Small left pleural effusion No pneumothorax. Cardiomediastinal contours: Unremarkable Bones: No acute osseous abnormality. IMPRESSION: Small left pleural effusion and left basilar opacit.y EXAM: Two-dimensional and M-mode echocardiogram with Doppler and color Doppler. Blood Pressure: 114/49 mmHg INDICATION shortness of breath RISK FACTORS Obesity: Height: 5'7, Weight: 185 DIMENSIONS LVDd 5.0 (3.8-5.7cm) LA (2D) 3.3 (1.9-4.0cm) Aortic Root 3.7 (2.0- 3.7cm) LVDs 4.4 (2.5-4.0cm) LA (MM) (1.9-4.0cm) Aortic Cusp Exc 0.7 (1.5- 2.0cm) EF (%) 50.0 (55-70%) Rt. Atrium 3.8 (1.9-4.0cm) Asc. Aorta cm IVSd 0.8 (0.7-1.1cm) RV (D) 4.9 (1.8-2.4cm) PWd 1.0 (0.7-1.1cm) Mitral Valve Mitral Mitral Stenosis E wave 0.98m/s MV Mean GR. mmHg A wave 0.83m/s MV Peak GR. 50mmHg E/A ratio 1.2 2D MVA cm2 DECEL Time 141ms PRESS 1/2 Time ms Aortic Valve Aortic Valve Aortic Stenosis V1 0.74m/s AO Mean GR. 8mmHg V2 1.84m/s AO Peak GR. 14mmHg LVOT Diameter 2.5 (1.8-2.4cm) Doppler DAVID 1.97cm2 Other Information Quality : Technically Limited Rhythm : Technically limited study due to body habitus.patient position. Conclusion Sinus rhythm. Concentric LVH. Aortic root enlargement. Dilation of the sinuses of Valsalva. RV enlargement. Aortic sclerosis with diminished excursion of the leaflets and calcification of the aortic leaflets. The mitral structurally normal. The tricuspid and pulmonic is normal. Left ventricular function is mildly diminished. EF is about 40% with global hypokinesis. Diminished RV function. Doppler reveals a peak gradient across the aortic valve of14 mmHg with a mean gradient of nine. Aortic valve area of 1.9 cm2. No pericardial effusion masses or vegetations. Condition at Discharge: Guarded Final Diagnosis/Problems List # Acute hypoxic respiratory failure likely due to community-acquired Gram-positive / Gram-negative pneumonia # Possible Gram-positive/Gram-negative pneumonia # Chronic COPD # Newly diagnosed chronic systolic heart failure # Type 2 diabetes mellitus, HbA1C 11.0% ( 09/17) # Hypertensive heart disease Discharge Disposition: Home Discharge Instruct/Medications Diet: Consistent carbohydrate, Cardiac 2g Na,low cholest Activity: No Restrictions, As Tolerated Follow Up/Referral: Follow up with PCP in 1 week. Follow up with Outpatient Cardiology in 1 to 2 week for workup of newly diagnosed chronic systolic heart failure. Medications: Levofloxacin 750 mg daily for 5 days Metformin ER 500 mg bid for 1 month Jardiance 10 mg daily for 30 days Discharge Statement: "Patient was advised to return to the ER or call 911 if any headaches, dizziness, shortness of breath, chest pain, abdominal pain, bleeding, fevers, or worsening of medical condition. Patient was counseled about treatment plan, medications, possible side effects, patientverbalized understanding. All questions were answered to the best of my ability. This discharge took greater then 30 minutes in planning, reviewing documentation, counseling the patient, and discussing with other team members." ASSESSMENT ASSESSMENT Assessment # Acute hypoxic respiratory failure likely due to community-acquired Gram- positive / Gram-negative pneumonia # Possible Gram-positive/Gram-negative pneumonia # Chronic COPD # Newly diagnosed chronic systolic heart failure # Type 2 diabetes mellitus, HbA1C 11.0% ( 09/17) # Hypertensive heart disease Date of Service: Sep 29, 2024 Billing Provider: LUCIAN TRAN MD Common Visit Codes: 31234-ZGR/OBS DISCH DAY >30min RUSSELL GUERRERO Sep 29, 2024 12:21 LUCIAN TRAN MD Oct 04, 2024 10:04
[2024-09-29 13:00] VITALS: BP 137/75; PULSE 80; RESP 19; TEMP 98.6; O2SAT 93
[2024-09-29 13:11] VITALS: BP 113/62; PULSE 72; RESP 18; TEMP 36.6; O2SAT 92
--- NOTE | 2024-10-06 14:02 | DVHOP ---
DATE OF SURGERY: 10/06/2024 PROCEDURES PERFORMED: * Selective right and left renal angiography. * Aortogram. * Selective left and right iliac angiography. DESCRIPTION OF PROCEDURE: The patient was prepped and draped in a sterile condition. 1% Xylocaine used to anesthetize the right groin. Using a Cook needle, the right femoral artery was engaged with Seldinger technique, a 6-Chinese sheath in the right femoral artery. Using 6-Chinese Cobra C1 diagnostic catheter, selective left and right renal angiography was performed. We elected not to do the angioplasty of the right renal artery, which had about an 80% narrowing and a significant pressure gradient of about 50 mm. Because the patient had significant amount of dye load trying to cannulate the right renal artery, we elected to do the angioplasty at a later date. RESULTS: * Left renal artery without any flow restrictive lesion. * Right renal artery had an 80% narrowing with about 35-50 mm gradient across the lesion. The patient will require angioplasty or stent placement of the renal artery, but that will be done at a later date. Right and left iliac angiography failed to demonstrate any significant narrowing. Thus, the patient with malignant hypertension. MRI showed significant narrowing of the right renal artery. Now, angiogram shows the patient to have 80% narrowing of the right renal artery with a 35-50 mm gradient across the renal artery. Cheng Rolon MD SA/GIANA TID: [id number] RECEIPT: [id number]
== END 2024-09-29 14:45 | disposition home or self-care (01) | DRG 177 ==
LOC: ER 12:15 → OVERFLOW 19:06 → WEST WING 20:58
PROVIDERS: ADMIT Student in an Organized Health Care Education/Training Program; ATTEND Emergency Medicine
DX: J15.69 Pneumonia due to other Gram-negative bacteria (principal); J96.01 Acute respiratory failure with hypoxia; J44.0 Chronic obstructive pulmonary disease with (acute) lower respiratory infection; I50.22 Chronic systolic (congestive) heart failure; I11.0 Hypertensive heart disease with heart failure; J15.9 Unspecified bacterial pneumonia; Z20.822 Contact with and (suspected) exposure to COVID-19; E11.9 Type 2 diabetes mellitus without complications; E78.5 Hyperlipidemia, unspecified; Z79.899 Other long term (current) drug therapy; Z79.2 Long term (current) use of antibiotics; Z79.82 Long term (current) use of aspirin
CPT/HCPCS: 36415; 71045; 80048; 80053; 81001; 82962; 83605; 83880; 84443; 84484; 85025; 87040; 87426; 87804; 93005; 93306; 94640; 96365; 96368; 96375; 99291; G0378; J0692; J1815

== ENCOUNTER → 2024-12-01 | Outpatient (CLI) | payer MEDICARE, OTHER ==
[~2024-12-01] MED LIST changes: -CEPH-510 PO; -DOXY-346 PO; +EMPA1TAB PO; +LEVO750T40 PO; +METF-490 PO; -MUPI2OIN2 EX; -PRED20TA2 PO
[2024-12-01 09:06] LABS: Urine Bacteria None Seen /hpf (None Seen)
[2024-12-01 09:21] LABS: Urine Blood Negative /uL (Negative); Urine Clarity Clear (Clear); Urine Color Light-Yellow (Yellow); Urine Protein, UAD Negative (Negative); Urine Specific Gravity 1.009 (1.001-1.035); Urine Squamous Epithelial Cell None Seen /hpf (<5); Urine Urobilinogen Normal (Negative); Urine WBC < 1 /HPF (0-3); Urine pH 6.5 (5.0-9.0)
[2024-12-01 10:49] LABS: Alanine Aminotransferase 25 U/L (7-40); Alkaline Phosphatase 68 U/L (46-116); Anion Gap 5 (5-15); Aspartate Aminotransferase 19 U/L (13-40); Calcium 9.9 mg/dL (8.7-10.4); Carbon Dioxide 30 mmol/L (20-31); Chloride 105 mmol/L (98-107); Potassium 4.9 mmol/L (3.5-5.1); Sodium 140 mmol/L (136-145)
[2024-12-01 10:51] LABS: BUN/Creatinine Ratio 13.5 (10.0-20.0); Blood Urea Nitrogen 14 mg/dL (9-23); Glucose 160 mg/dL (74-106)
[2024-12-01 10:53] LABS: Albumin 4.6 g/dL (3.2-4.8); Bilirubin, Total 0.3 mg/dL (0.2-1.0)
[2024-12-01 16:44] LABS: Triglycerides 75 mg/dL (< 150)
[2024-12-01 16:45] LABS: Cholesterol 141 mg/dL (< 200); LDL Cholesterol 80 mg/dL (< 100)
[2024-12-01 16:46] LABS: HDL Cholesterol 47 mg/dL (40-59)
== END | disposition home or self-care (01) ==
LOC: LAB 08:51
PROVIDERS: ATTEND Nurse Practitioner
DX: I10 Essential (primary) hypertension (principal); E11.9 Type 2 diabetes mellitus without complications; E78.5 Hyperlipidemia, unspecified
CPT/HCPCS: 36415; 80053; 80061; 81001; 82043; 83036

== ENCOUNTER 2025-03-08 14:49 | Outpatient (CLI) | payer MEDICARE, OTHER ==
[2025-03-08 15:59] LABS: Alanine Aminotransferase 18 U/L (7-40); Albumin 4.7 g/dL (3.2-4.8); Alkaline Phosphatase 71 U/L (46-116); Anion Gap 9 (5-15); BUN/Creatinine Ratio 14.8 (10.0-20.0); Bilirubin, Total 0.4 mg/dL (0.2-1.0); Blood Urea Nitrogen 17 mg/dL (9-23); Calcium 10.2 mg/dL (8.7-10.4); Carbon Dioxide 26 mmol/L (20-31); Chloride 102 mmol/L (98-107); Potassium 4.2 mmol/L (3.5-5.1); Sodium 137 mmol/L (136-145); Total Protein 7.0 g/dL (5.7-8.2)
[2025-03-08 16:00] LABS: Glucose 232 mg/dL (74-106)
== END 2025-03-08 17:00 | disposition home or self-care (01) ==
LOC: LAB 14:49
PROVIDERS: ATTEND Nurse Practitioner
DX: E11.9 Type 2 diabetes mellitus without complications (principal)
CPT/HCPCS: 36415; 80053; 83036

== ENCOUNTER → 2025-06-08 | Outpatient (CLI) | payer MEDICARE, OTHER ==
[2025-06-08 13:03] LABS: Alanine Aminotransferase 29 U/L (7-40); Albumin 4.8 g/dL (3.2-4.8); Alkaline Phosphatase 64 U/L (46-116); Anion Gap 9 (5-15); BUN/Creatinine Ratio 10.8 (10.0-20.0); Blood Urea Nitrogen 11 mg/dL (9-23); Calcium 9.5 mg/dL (8.7-10.4); Carbon Dioxide 26 mmol/L (20-31); Chloride 105 mmol/L (98-107); Potassium 4.5 mmol/L (3.5-5.1); Sodium 140 mmol/L (136-145); Total Protein 7.4 g/dL (5.7-8.2); Triglycerides 114 mg/dL (< 150)
[2025-06-08 13:04] LABS: Bilirubin, Total 0.4 mg/dL (0.2-1.0); Cholesterol 187 mg/dL (< 200); Glucose 116 mg/dL (74-106); HDL Cholesterol 52 mg/dL (40-59)
== END | disposition home or self-care (01) ==
LOC: LAB 11:32
PROVIDERS: ATTEND Nurse Practitioner
DX: E78.5 Hyperlipidemia, unspecified (principal); E11.9 Type 2 diabetes mellitus without complications
CPT/HCPCS: 36415; 80053; 80061; 83036